=== PATIENT | female | born 2000 | race Hispanic/Latino ===

== ENCOUNTER 2021-06-18 09:00 | Outpatient (CLI) | payer MEDICAID ==
[2021-06-18 23:14] LABS: SARS-CoV-2 PCR by NAA Not Detected (NotDetected)
== END 2021-06-18 09:01 | disposition home or self-care (01) ==
LOC: CSHLAB 09:00
PROVIDERS: ATTEND Family Medicine
DX: Z20.822 Contact with and (suspected) exposure to COVID-19 (principal)
CPT/HCPCS: U0003; U0005

== ENCOUNTER 2021-06-21 19:00 | Inpatient (IN) | payer MEDICAID, OTHER ==
[~2021-06-21 19:00] MED LIST: Bupivacaine/Epinephrine 0.25% 30 ML VIAL ONE
[2021-06-21] MEDS ORDERED: NS w/ Oxytocin 30 units 500 ML IV SCH ×2 (23:45)
[2021-06-21] MEDS ORDERED: Misoprostol 200 MCG TAB PR PRN (23:47)
[2021-06-21] MEDS ORDERED: Ondansetron PF 4 MG/2 ML Vial IVP PRN (23:47)
[2021-06-21] MEDS ORDERED: Lidocaine 1% (PF) 30 ML VIAL SC PRN (23:47)
[2021-06-21] MEDS ORDERED: Promethazine HCl 25 MG/ML VIAL IM PRN (23:47)
[2021-06-21] MEDS ORDERED: Acetaminophen 500 MG TAB PO PRN (23:47)
[2021-06-21] MEDS ORDERED: Diphenoxylate HCl/Atropine Tablet PO PRN ×2 (23:47)
[2021-06-21] MEDS ORDERED: Carboprost 250 MCG/ML AMP IM PRN (23:47)
[2021-06-21] MEDS ORDERED: Ibuprofen 800 MG TAB PO PRN (23:47)
[2021-06-21] MEDS ORDERED: hydrALAZINE 20 MG/ML VIAL SLOW IVP PRN (23:47)
[2021-06-22] VITALS: BMI 37.5
[2021-06-22 01:03] LABS: Hemoglobin 9.5 g/dL (12.0-15.5); Mean Corpuscular Hemoglobin 21.7 pg (27.0-33.0); Mean Platelet Volume 10.1 fl (7.4-10.4); Platelet Count 254 10x3/uL (150-450); RBC Distribution Width 19.4 % (11.5-14.5); Red Blood Cell (RBC) Count 4.37 10x6/uL (3.90-5.03); White Blood Cell (WBC) Count 7.2 10x3/uL (3.5-10.5)
[2021-06-22 01:36] LABS: Hep B Surf Ag Non-Reactive S/CO (NonReactive)
[2021-06-22] MEDS: Misoprostol 100 MCG TAB VAG SCH ×2 (01:37→08:47)
[2021-06-22 01:38] LABS: Syphilis Antibody Nonreactive (Nonreactive); Syphilis Antibody Index 0.07 S/CO (<1.00 Non-Reactive)
[2021-06-22 01:39] LABS: HBSAg Index 0.18 S/CO (0-0.99)
[2021-06-22] MEDS ORDERED: Butorphanol Tartrate 1 MG/ML VIAL SLOW IVP SCH (07:30)
[2021-06-22] MEDS ORDERED: Butorphanol Tartrate 1 MG/ML VIAL ONE (07:31)
[2021-06-22] MEDS ORDERED: Fentanyl 2 mcg/Bup 0.1% Cadd 100 ML ONE (11:41)
[2021-06-22] MEDS: Lactated Ringer's 1,000 ML IV SCH (11:57)
[2021-06-22] MEDS: Fentanyl 2 mcg/Bupivacaine 0.1% Cassette 100 ML EPIDURAL SCH ×2 (11:57→17:54)
[2021-06-22] MEDS ORDERED: Naloxone HCl 0.4 mg/ml Vial IVP PRN ×2 (11:59)
[2021-06-22] MEDS ORDERED: ePHEDrine Sulfate 50 MG/10 ML VIAL SLOW IVP PRN (11:59)
[2021-06-22] MEDS ORDERED: Lactated Ringer's 500 ML IV PRN (11:59)
[2021-06-22] MEDS ORDERED: Promethazine HCl 25 MG/ML VIAL IM PRN ×2 (11:59→22:25)
[2021-06-22] MEDS ORDERED: Hydrocerin (Eucerin) Cream 120 gm Jar TOP PRN (11:59)
[2021-06-22] MEDS ORDERED: diphenhydrAMINE 50 MG/ML VIAL IVP PRN (11:59)
[2021-06-22] MEDS ORDERED: Ondansetron PF 4 MG/2 ML Vial IVP PRN ×2 (11:59→22:25)
[2021-06-22] MEDS ORDERED: Communication Order-Pharmacy FS SCH (12:00)
[2021-06-22] MEDS ORDERED: Methylergonovine 0.2 MG/ML VIAL ONE (19:19)
[2021-06-22] MEDS ORDERED: Diphenoxylate HCl/Atropine Tablet PO PRN (19:27)
[2021-06-22] MEDS ORDERED: Diphenoxylate HCl/Atropine Tablet PO SCH (19:30)
[2021-06-22] MEDS ORDERED: hydrALAZINE 20 MG/ML VIAL SLOW IVP PRN (22:25)
[2021-06-22] MEDS ORDERED: Bisacodyl 10 MG SUPP PR PRN (22:25)
[2021-06-22] MEDS ORDERED: Boostrix 0.5 ML (Tdap) VIAL IM ONE (22:25)
[2021-06-22] MEDS ORDERED: Misoprostol 200 MCG TAB VAG PRN (22:25)
[2021-06-22] MEDS ORDERED: Lanolin Ointment 7 GM TUBE TOP PRN (22:25)
[2021-06-22] MEDS ORDERED: Benzocaine-Menthol 82.5 ML CAN TOP PRN (22:25)
[2021-06-22] MEDS ORDERED: Preparation H Ointment 28 GM TUBE PR PRN (22:25)
[2021-06-22] MEDS ORDERED: diphenhydrAMINE 25 MG CAP PO PRN (22:25)
[2021-06-22] MEDS ORDERED: NS w/ Oxytocin 30 units 500 ML IV SCH (22:25)
[2021-06-22] MEDS ORDERED: Milk Of Magnesia 30 ML UDCUP PO PRN (22:25)
[2021-06-22] MEDS ORDERED: Docusate 100 MG CAP PO SCH (23:00)
[2021-06-22] MEDS: Ibuprofen 800 MG TAB PO SCH (23:26)
[2021-06-23] MEDS: Acetaminophen 325 MG TAB PO PRN ×3 (00:27→19:31)
[2021-06-23] MEDS: Ibuprofen 800 MG TAB PO SCH ×3 (06:25→21:48)
[2021-06-23] MEDS: Lactated Ringer's 1,000 ML IV SCH (07:15)
[2021-06-23] MEDS: Misoprostol 100 MCG TAB VAG SCH ×2 (07:15→07:16)
[2021-06-23] MEDS: Docusate 100 MG CAP PO SCH ×2 (08:53→21:48)
[2021-06-23] MEDS: Ferrous Sulfate 325 MG TAB PO SCH ×2 (08:53→18:02)
[2021-06-23] MEDS: Prenatal Vitamin 1 TAB PO SCH (08:53)
[2021-06-24] MEDS: Ibuprofen 800 MG TAB PO SCH ×2 (05:34→14:06)
[2021-06-24] MEDS: Prenatal Vitamin 1 TAB PO SCH (08:37)
[2021-06-24] MEDS: Ferrous Sulfate 325 MG TAB PO SCH (08:37)
[2021-06-24] MEDS: Docusate 100 MG CAP PO SCH (08:37)
[2021-06-24 11:34] VITALS: BP 118/58; TEMP 98.2
== END 2021-06-24 16:00 | disposition home or self-care (01) | DRG 807 ==
LOC: CSHLD 23:50 → CSHPP 06-22 22:00
PROVIDERS: ADMIT Family Medicine; ATTEND Family Medicine
PROC: 10E0XZZ Delivery of Products of Conception, External Approach (ICD-10-PCS; principal; 2021-06-22)
PROC: 3E0P7VZ Introduction of Hormone into Female Reproductive, Via Natural or Artificial Opening (ICD-10-PCS; 2021-06-22)
PROC: 3E033VJ Introduction of Other Hormone into Peripheral Vein, Percutaneous Approach (ICD-10-PCS; 2021-06-22)
PROC: 10907ZC Drainage of Amniotic Fluid, Therapeutic from Products of Conception, Via Natural or Artificial Opening (ICD-10-PCS; 2021-06-22)
PROC: 10H07YZ Insertion of Other Device into Products of Conception, Via Natural or Artificial Opening (ICD-10-PCS; 2021-06-22)
DX: O10.92 Unspecified pre-existing hypertension complicating childbirth (principal); Z37.0 Single live birth; Z3A.38 38 weeks gestation of pregnancy; Z79.82 Long term (current) use of aspirin; D50.9 Iron deficiency anemia, unspecified; O99.02 Anemia complicating childbirth; E66.9 Obesity, unspecified; O99.214 Obesity complicating childbirth; O62.2 Other uterine inertia; O99.344 Other mental disorders complicating childbirth; F41.9 Anxiety disorder, unspecified
CPT/HCPCS: 36415; 51702; 85027; 86780; 86850; 86900; 86901; 87340; J0595; J2405; J2590; J3490; J7120